=== PATIENT | female | born 1955 | race African-American/Black ===

== ENCOUNTER → 2017-06-07 | Outpatient (CLI) | payer BC | END | disposition home or self-care (01) | LOC: RAD 10:20 | DX: M17.12 Unilateral primary osteoarthritis, left knee (principal); M77.8 Other enthesopathies, not elsewhere classified | CPT/HCPCS: 73560 ==

== ENCOUNTER → 2019-06-15 | Outpatient (CLI) | payer BC ==
--- NOTE | 2019-06-15 17:12 | KCIC ---
Bilateral lower extremity arterial Doppler ultrasound HISTORY: Bilateral leg pain TECHNIQUE: Color Doppler, grayscale and duplex analysis performed of the right and left lower extremity arterial structures, from the common femoral artery through the runoff vessels. COMPARISON: None are available All velocity measurements are in centimeters per second. Right leg: Triphasic waveforms involving the right common femoral through mid superficial femoral artery. Biphasic waveforms from the distal superficial femoral artery through the calf and ankle. No critical segmental velocity elevation is seen to suggest a high-grade stenosis. Calcified plaque seen in the calf. Left leg: Triphasic waveform at the common femoral artery. Biphasic waveforms from the superficial femoral artery through the calf and ankle. No critical segmental velocity elevation is identified to suggest a high-grade stenosis. Plaque identified in calf arteries. IMPRESSION: No evidence of occlusion or high-grade stenosis. Electronically signed by: Harley Mirza MD (06/15/2019 5:09 PM) [id number]
== END | disposition home or self-care (01) ==
LOC: KCIC US 12:47
PROVIDERS: ATTEND Family Medicine
DX: I70.293 Other atherosclerosis of native arteries of extremities, bilateral legs (principal)
CPT/HCPCS: 93925

== ENCOUNTER → 2020-05-25 | Outpatient (CLI) | payer BC, MEDICARE, OTHER ==
--- NOTE | 2020-05-25 15:51 | RAD ---
EXAM: Bilateral digital screening mammogram with tomosynthesis. HISTORY: 64-year-old female presents for screening mammography. TECHNIQUE: Full-field digital craniocaudal and mediolateral oblique 2D and 3D tomosynthesis images of both breasts are obtained for evaluation. Computer aided detection was applied. COMPARISON: There is no prior study for comparison at the time of dictation. An addendum to this repo rt will be submitted if a prior study becomes available. BREAST PARENCHYMAL DENSITY: BI-RADS Level B - Scattered fibroglandular densities. FINDINGS: There is no suspicious mass, microcalcification or region of architectural distortion. Ther e are a few benign calcifications within both breasts. IMPRESSION: BI-RADS Category 2: Benign finding(s). RECOMMENDATION: Annual mammography is recommended. If your mammogram demonstrates that you have dense breast tissue, which could hide abnormalities, and if you have other risk factors for breast cancer that have been identified, you might benefit from s upplemental screening tests that may be suggested by your ordering physician. Dense breast tissue, i n and of itself, is a relatively common condition. This information is not provided to cause undue c oncern, but rather to raise your awareness and to promote discussion with your physician regarding th e presence of other risk factors, in addition to dense breast tissue. A report of your mammography re sults will be sent to you and your physician. You should contact your physician if you have any ques tions or concerns regarding this report. Mammography is a sensitive method for finding small breast cancers, but it does not detect them all a nd is not a substitute for careful clinical examination. A negative mammogram does not negate a clin ically suspicious finding and should not result in delay in biopsying a clinically suspicious abnorma lity. PQRS compliance statement - Patient information was entered into a reminder system with a target due date for the next mammogram. "Our facility is accredited by the [employer] Mammography [employer]." Electronically signed by: Bozena Naylor MD (05/25/2020 3:48 PM) [id number]
== END ==
LOC: MAMMO 09:45
PROVIDERS: ATTEND Family Medicine
DX: Z12.31 Encounter for screening mammogram for malignant neoplasm of breast (principal)
CPT/HCPCS: 77063; 77067

== ENCOUNTER → 2021-05-25 | Outpatient (CLI) | payer OTHER ==
--- NOTE | 2021-05-25 11:58 | KCIC ---
Bilateral digital screening mammograms with 3-D tomosynthesis: Reason for examination: Routine screening. Comparison is made to previous studies dated back to 04/25/2016. Bilateral mammograms in CC and oblique projections were obtained with 2-D imaging and 3-D tomosynthes is imaging on a Siemens Inspiration unit and reviewed on the workstation. Interpretation was made wit h the benefit of CAD. The skin and nipples show no abnormalities. No abnormal axillary lymph nodes are seen. The breast par enchyma shows scattered fatty and fibroglandular density. (Breast density: Category B.) There are no dominant masses, suspicious calcifications or architectural distortion. Impression: No evidence of malignancy. Recommend routine screening. BI-RAD Category 1: Negative. "Our facility is accredited by the [employer] Mammography [employer]." This patient's information has been entered into a reminder system for the patient to be notified wit h the results of her examination and a target date for the next mammogram. Electronically signed by: Michelle Moise MD (05/25/2021 11:55 AM) [id number]
== END ==
LOC: KCIC MAMMO 10:48
PROVIDERS: ATTEND Family Medicine
DX: Z12.31 Encounter for screening mammogram for malignant neoplasm of breast (principal)
CPT/HCPCS: 77063; 77067